=== PATIENT | male | born 1990 | race Hispanic/Latino ===

== ENCOUNTER 2024-03-28 15:32 | Emergency (ER) | payer OTHER, SELFPAY ==
--- NOTE | ~2024-03-28 | XR_ITS ---
EXAMINATION: XR chest 2V DATE: 03/28/2024 16:10 INDICATION: Chest pain TECHNIQUE: PA and lateral views of the chest were obtained. COMPARISON: None FINDINGS: The lungs are clear with no focal airspace opacities, pulmonary edema, pleural effusion or pneumothor ax. The cardiomediastinal silhouette is normal. Visualized bones and soft tissues are unremarkable. IMPRESSION: 1. No acute cardiopulmonary disease. Reviewed, dictated and finalized at location A. R SALES ASSOCIATE
--- NOTE | 2024-03-28 15:35 | ECG_ITS ---
Test Date: 2024-03-28 15:39:57 Measurements Intervals [place] Rate: 77 P: 68 [place]: 192 QRS: 59 QRSD: 86 T: 53 QT: 364 QTc: 414 Interpretive Statements SINUS RHYTHM WITH SINUS ARRHYTHMIA BASELINE ARTIFACT- I, III, AVL NORMAL ECG No previous ECG available for comparison Electronically Signed On 03-28-2024 15:47:34 VACUUM FRAME OPERATOR by Griffin Rodriguez D.O.
[2024-03-28 15:51] LABS: Basophils Percent Auto 0.7 % (0.2-1.2); Eosinophils Absolute Auto 0.2 K/mm3 (0-0.3); Eosinophils Percent Auto 4.2 % (0-4.4); Hematocrit 47.4 % (42.0-52.0); Hemoglobin 16.1 g/dL (14.0-18.0); Immature Granulocyte Absolute 0.01 K/mm3 (0.00-0.031); Immature Granulocyte Percent A 0.2 % (0-0.5); Lymphocytes Absolute Auto 1.61 K/mm3 (0.9-3.2); Lymphocytes Percent Auto 35.4 % (18.3-44.2); Mean Corpuscular Hemoglobin 29.5 pg (26-34); Mean Platelet Volume 10.8 fl (7.4-10.4); Monocytes Absolute Auto 0.4 K/mm3 (0.1-0.6); Monocytes Percent Auto 7.9 % (2.6-8.5); Neutrophils Absolute Auto 2.4 K/mm3 (1.3-6.7); Neutrophils Percent Auto 51.6 % (45.5-73.1); Platelet Count Result 188 k/mm3 (150-375); Red Blood Count 5.45 M/mm3 (4.6-6.20); Red Cell Distribution Width 12.5 % (11.5-14.5); White Blood Count 4.6 K/mm3 (4.5-10.0)
--- OUTSIDE RECORDS SUMMARY | 2024-03-28 15:57 | XMS_ITS | Clinical Summary ---
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 Active Active Problems No known active problems Social History Tobacco Use Types Packs/Day Years Used Date Smoking Tobacco: Every Day Cigarettes Smokeless Tobacco: Never Sex and Gender Information Value Date Recorded Sex Assigned at Not on file Legal Sex Male 1:54 PM CDT Gender Identity Not on file Sexual Orientation Not on file Last Filed Vital Signs Vital Sign Reading Time Taken Comments Blood Pressure 122/72 11/16/2022 2:41 PM CDT Pulse 97 11/16/2022 2:41 PM CDT Temperature 36.8 C (98.2 F) 11/16/2022 2:41 PM CDT Respiratory Rate 12 11/16/2022 2:41 PM CDT Oxygen Saturation 98% 11/16/2022 2:41 PM CDT Inhaled Oxygen Concentration - - Weight 72.6 kg (160 lb) 11/16/2022 2:41 PM CDT Height 172.7 cm (5' 8 ) 11/16/2022 2:41 PM CDT Body Mass Index 24.33 11/16/2022 2:41 PM CDT Plan of Treatment Health Maintenance Due Date Last Done Comments PNEUMOCOCCAL VACCINE 0-64 YE ARS (1 of 2 - PCV) 1996 DTAP/TDAP/TD VACCINES (1 - Tdap) 2009 HEPATITIS B VACCINES (1 of 3 - 19+ 3-dose series) 2009 INFLUENZA VACCINE (#1) 2023 HPV VACCINES Aged Out No longer eligi ble based on patient's age to complete this topic Insurance [facility] CHOICE
[2024-03-28 16:00] LABS: Alanine Aminotransferase 40 U/L (6-50); Albumin Level 4.7 g/dL (3.5-5.1); Alkaline Phosphatase 59 U/L (38-126); Anion Gap 11 mmol/L (4-12); Aspartate Amino Transferase 25 U/L (17-59); Bilirubin,Total 0.6 mg/dL (0.2-1.3); Blood Urea Nitrogen 23 mg/dL (9-20); Calcium 9.6 mg/dL (8.4-10.2); Carbon Dioxide 28 mmol/L (22-30); Chloride 102 mmol/L (98-107); Estimated CRCL calculation 105 ml/min; Estimated Glomerular Filt Rate > 60; Glucose 91 mg/dL (65-110); Lipase 77 U/L (23-300); Potassium 4.5 mmol/L (3.4-5.0); Sodium 141 mmol/L (137-145)
[2024-03-28 16:12] LABS: Troponin I < 0.012 ng/mL (0.000-0.034)
[2024-03-28 16:17] LABS: Prothrombin Time 13.4 Seconds (11.1-14.7)
[2024-03-28 16:18] LABS: Partial Thromboplastin Time 28.9 Seconds (22.3-36.8)
--- NOTE | 2024-03-28 18:24 | ED_ITS ---
HPI - Chest Pain General Chief Complaint: Chest Pain Stated Complaint: chest pain Time Seen by Provider: 03/28/24 19:29 Focused HPI: this is a 33-year-old male who presents to the ED for chief complaint of chest pain this started just prior to arrival. Patient states that he was out doing shopping at [employer] when he started to have pain and then sat in his truck. States that this has happened a couple of times and usually only last for about 10 minutes. No specific alleviating or exacerbating factors. denies syncope, nausea, vomiting, palpitations, leg swelling. Denies any history of blood clot, recent travel, immobilization. GENERAL: Well-appearing, well-nourished, and in no acute distress. HEAD: Normocephalic, atraumatic. CHEST: Clear to auscultation. No respiratory distress. HEART: Regular rate and rhythm. NEURO: Alert and oriented x3. Patient screened in triage and initial orders placed. Additional care and disposition to be based upon diagnostic testing and treatment. Source: patient Mode of arrival: ambulatory Limitations: no limitations Related Data Allergies Allergy/AdvReac Type Severity Reaction Status Date / Time No Known Allergies Allergy Mild Verified 12/05/23 14:34 Review of Systems 2 Review of Systems: All systems as dictated in [facility] Past Medical History Medical History BMI 23.0-23.9, adult BMI 25.0-25.9,adult Cerumen impaction Ear pain Patient new to facility Tinea corporis Surgical History Surgical History History of ear surgery Family History Family History Mother Patient's mother is in good health Sibling Patient's brother is in good health Father No problems noted. Social History Social History Smoking status: Current every day smoker Tobacco type: cigarettes Second hand tobacco smoke exposure: Yes Alcohol intake: current Substance use: current Substance use type: marijuana Do You Feel Safe in your Home?: Yes Lack of Transportation: No Lack of Food: Never True Current Housing: I Have Housing Concerned About Future Housing: No Difficulty Paying Gas/Electric Bills: No Difficulty Paying for Meds: No Currently Unemployed: No Education: Trade/Vocational Certificate Difficulty w/ Childcare or Family Care: No Living arrangements: with family Additional living arrangements comments: Pt and his recently . 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 Gender identity (if verbalized by the patient): Male Exam 2 Narrative: GENERAL: Well-appearing, well-nourished, and in no acute distress. HEAD: Normocephalic, atraumatic. EYES: PERRLA and EOMI. ENT: Nares clear, no rhinorrhea or epistaxis. Mucous membranes moist. Oropharynx without tonsillar hypertrophy exudate or other lesions. NECK: Supple. No adenopathy or masses. CHEST: No respiratory distress. Clear to auscultation. No wheezes rales or rhonchi HEART: Regular rate and rhythm. No murmur heard. Normal peripheral pulses. ABDOMEN: Soft, nontender, nondistended, normal active bowel sounds. MSK: Normal range of motion. No edema. SKIN: Warm, dry, no rash. NEURO: Alert and oriented x4. No focal deficits. PSYCH: Normal mood and affect. Course Vital Signs Vital signs: Vital Signs Temperature 97.8 F 03/28/24 18:28 Pulse Rate 68 03/28/24 18:28 Respiratory Rate 16 03/28/24 18:28 Blood Pressure 109/67 03/28/24 18:28 Pulse Oximetry 97 03/28/24 18:28 Temperature 97.8 F 03/28/24 18:28 Pulse Rate 68 03/28/24 18:28 Respiratory Rate 16 03/28/24 18:28 Blood Pressure 109/67 03/28/24 18:28 Pulse Oximetry 97 03/28/24 18:28 MDM - Chest Pain MDM Narrative Medical decision making narrative: This is a 33-year-old male who presents to the ED for about of 10 minutes of chest pain today. Vitals are normal. EKG shows sinus rhythm with no acute ischemia. Serial troponins are negative. Heart score 0. He is asymptomatic on my evaluation. He is PERC negative for PE. Chest x-ray shows no acute findings. Presentation consistent with atypical chest pain versus costochondritis presents anxiety. Pt will be discharged in stable condition. Return precautions given and supportive measures discussed. Pt is understanding and agreeable with plan for discharge and follow-up with PCP. Lab Data 03/28/24 15:44 03/28/24 15:44 Labs: Lab Results 03/28/24 03/28/24 Range/Units 15:44 18:41 WBC 4.6 (4.5-10.0) K/mm3 RBC 5.45 (4.6-6.20) M/mm3 Hgb 16.1 (14.0-18.0) g/dL Hct 47.4 (42.0-52.0) % MCV 87.0 (80-100) fl MCH 29.5 (26-34) pg MCHC 34.0 (32-36) g/dl RDW 12.5 (11.5-14.5) % Plt Count 188 (150-375) k/mm3 MPV 10.8 H (7.4-10.4) fl Immature Gran % (Auto) 0.2 (0-0.5) % Neut % (Auto) 51.6 (45.5-73.1) % Lymph % (Auto) 35.4 (18.3-44.2) % Haines % (Auto) 7.9 (2.6-8.5) % Eos % (Auto) 4.2 (0-4.4) % Baso % (Auto) 0.7 (0.2-1.2) % Lymph # (Auto) 1.61 (0.9-3.2) K/mm3 Haines # (Auto) 0.4 (0.1-0.6) K/mm3 Eos # (Auto) 0.2 (0-0.3) K/mm3 Baso # (Auto) 0.0 (0.0-0.1) K/mm3 Abs Immat Gran (auto) 0.01 (0.00-0.031) K/mm3 Absolute Neuts (auto) 2.4 (1.3-6.7) K/mm3 Absolute Nucleated RBC 0.000 (0.0-0.012) K/mm3 Nucleated RBC % 0.0 (0.0-0.2) % PT 13.4 (11.1-14.7) Seconds INR 1.0 APTT 28.9 (22.3-36.8) Seconds Sodium 141 (137-145) mmol/L Potassium 4.5 (3.4-5.0) mmol/L Chloride 102 (98-107) mmol/L Carbon Dioxide 28 (22-30) mmol/L Anion Gap 11 (4-12) mmol/L BUN 23 H (9-20) mg/dL Creatinine 0.88 (0.7-1.3) mg/dL Estim Creat Clear Calc 105 ml/min Estimated GFR > 60 (59 - ) Glucose 91 (65-110) mg/dL Calcium 9.6 (8.4-10.2) mg/dL Total Bilirubin 0.6 (0.2-1.3) mg/dL AST 25 (17-59) U/L ALT 40 (6-50) U/L Alkaline Phosphatase 59 (38-126) U/L Troponin I < 0.012 < 0.012 (0.000-0.034) ng/mL Total Protein 8.0 (6.3-8.2) g/dL Albumin 4.7 (3.5-5.1) g/dL Lipase 77 (23-300) U/L ECG Data EKG #1: ECG completion date: 03/28/24 ECG completion time: 15:39 Prior ECG tracings: not available for review Interpretation: Sinus rhythm Rate 77 No acute ischemic findings EKG #2: ECG completion date: 03/28/24 ECG completion time: 18:41 Prior ECG tracings: available for review Interpretation: Sinus rhythm Rate 68 Benign early repolarization seen diffusely No acute ischemic findings Discharge Plan Discharge Clinical Impression: Chest pain Patient Disposition: Home, Self-Care Condition: Stable Instructions: Antibiotic Form, Chest Pain (ED) Additional Instructions: Your exam and imaging today are reassuring overall. Please follow-up with PCP on this issue. Take Tylenol and ibuprofen every feel chest pain come on. If you have any new or worsening symptoms please return to the ER for further evaluation. Patient Language: Maltese Prescriptions: No Action dextroamphetamine-amphetamine [Adderall] 10 mg tablet 10 mg PO DAILY PRN (Reason: adhd) Qty: 30 0RF mupirocin 2 % ointment 1 applic topical BID Qty: 22 0RF ketoconazole 2 % cream 1 applic topical DAILY Qty: 30 0RF dextroamphetamine-amphetamine [Adderall XR] 30 mg capsule,extended release 24hr 30 mg PO DAILY Qty: 14 0RF Follow-up/Referrals: Manuelito Vargas MD [Primary Care Provider] - Time of Disposition: 19:31 Quality HEART score for chest pain patients History: slightly suspicious ECG: normal Age: < or = to 45 years Risk factors: no risk factors known Troponin: < or = to 1x normal limit Heart score: 0
[2024-03-28 18:28] VITALS: BP 109/67; PULSE 68; RESP 16; TEMP 36.6; O2SAT 97
--- NOTE | 2024-03-28 18:40 | ECG_ITS ---
Test Date: 2024-03-28 18:41:59 Measurements Intervals [place] Rate: 68 P: 67 [place]: 199 QRS: 52 QRSD: 80 T: 47 QT: 394 QTc: 421 Interpretive Statements SINUS RHYTHM ST ELEVATION IN DIFFUSE LEADS- PROBABLY EARLY REPOLARIZATION BORDERLINE ECG Compared to ECG 03/28/2024 15:39:57 NO SIGNIFICANT CHANGE Electronically Signed On 03-29-2024 06:24:11 SENIOR PLANNING ANALYST by Griffin Rodriguez D.O.
[2024-03-28 19:11] LABS: Troponin I < 0.012 ng/mL (0.000-0.034)
--- OUTSIDE RECORDS SUMMARY | 2024-03-28 19:42 | XMS_ITS | Clinical Summary ---
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
== END 2024-03-28 19:40 | disposition home or self-care (01) ==
LOC: ANHED 19:41
PROVIDERS: Emergency Medicine; Emergency Provider Physician Assistant; PCP Family Medicine
DX: R07.9 Chest pain, unspecified (principal); F17.210 Nicotine dependence, cigarettes, uncomplicated
CPT/HCPCS: 36415; 71046; 80053; 83690; 84484; 85025; 85610; 85730; 93005; 99284